=== PATIENT | male | born 1970 | race Caucasian/White ===

== ENCOUNTER 2019-01-26 08:29 | Outpatient (CLI) | payer OTHER ==
--- NOTE | 2019-01-26 10:45 | MRI ---
MRI LUMBAR SPINE NONCONTRAST: DATE: 01/26/19 HISTORY: 48-year-old male with ICD-10: M54.17 lumbar radiculopathy and low back pain. COMPARISON: None. FINDINGS: For the purposes of this report, it will be assumed that there are 5 lumbar-type vertebrae. The vert ebral body heights are maintained. No spondylolisthesis. Normal bone marrow signal. Conus medullaris terminates at L1-2. Cauda equina is arranged in a symmetrical, normal distribution throughout the thecal sac. The findings by individual levels are as follows: T12-L1: Normal. L1-2: Normal. L2-3: Mild bilateral facet DJD. Normal intervertebral disc. No central or neural foraminal stenosis. L3-4: Disc desiccation. Very mild disc space narrowing. Diffuse disc bulge. Posterior midline annula r fissure. Indentation of ventral aspect of the thecal sac by the disc bulge. Mild central spinal can al stenosis. Mild thecal sac stenosis. Mild bilateral neural foraminal stenosis. L4-5: Disc space maintained. Disc desiccation. Diffuse disc bulge. Posterior midline annular fissure . Disc bulge indents the ventral aspect of the thecal sac. No central stenosis. Mild right neural for aminal stenosis. Mild to moderate left neural foraminal stenosis. L5-S1: Mild disc space narrowing. Disc desiccation. Superimposed on a diffuse disc bulge, there is a central and bilateral paracentral broad based disc herniation which protrudes into the anterior epid ural space, but does not impinge on nerve roots, and does not significantly decrease the caliber of t he thecal sac. No central stenosis. Mild bilateral neural foraminal stenosis. IMPRESSION: 1. Mild lumbar spondylosis with mild degenerative disc disease at the last 3 levels. 2. No high grade central spinal canal stenosis, high grade neural foraminal stenosis, or mckenna nerve root compression, at any level. JN R POS: CET
== END 2019-01-26 08:30 | disposition home or self-care (01) ==
LOC: TBSIIMAG 08:29
PROVIDERS: ATTEND Anesthesiology
DX: M47.26 Other spondylosis with radiculopathy, lumbar region (principal)
CPT/HCPCS: 72148